=== PATIENT | female | born 1960 | race Caucasian/White ===

== ENCOUNTER 2017-01-21 10:09 | Observation (INO) | payer OTHER ==
[2017-01-21] MEDS ORDERED: PHENAZOPYRIDINE HCL 200 MG TAB PO ONE (10:15)
[2017-01-21] MEDS ORDERED: SCOPOLAMINE HYDROBROMIDE 1.5 MG PATCH TD ONE (10:15)
[2017-01-21] MEDS ORDERED: ceFAZolin 2 GM/DEXTROSE 100 ML IV ONE (10:30)
[2017-01-21] MEDS ORDERED: LR 1,000 ML IV ONE ×2 (10:30→11:01)
[2017-01-21] MEDS ORDERED: BUPIVACAINE/EPI 0.5% 30 ML SDV ONE (10:54)
[2017-01-21] MEDS ORDERED: LIDOCAINE 1% 5 ML SDV ID PRN (11:01)
[2017-01-21] MEDS ORDERED: MIDAZOLAM 2 MG/2 ML VIAL ONE (11:29)
[2017-01-21] MEDS ORDERED: PROPOFOL/EMULSION 500 MG/50 ML BOTTLE IV ONE (11:40)
[2017-01-21] MEDS ORDERED: PROPOFOL 200 MG/20 ML VIAL ONE (11:40)
[2017-01-21] MEDS ORDERED: KETOROLAC 30 MG/1 ML SDV ONE (11:57)
[2017-01-21] MEDS ORDERED: GLYCOPYRROLATE 0.2 MG/1 ML VIAL ONE (11:57)
[2017-01-21] MEDS ORDERED: DEXAMETHASONE 4 MG/ML VIAL ONE (11:57)
[2017-01-21] MEDS ORDERED: ROCURONIUM 50 MG/5 ML VIAL ONE (11:57)
[2017-01-21] MEDS ORDERED: LIDOCAINE 2% 5 ML SDV ONE (11:57)
[2017-01-21] MEDS ORDERED: ONDANSETRON 4 MG/2 ML VIAL ONE (11:59)
[2017-01-21] MEDS ORDERED: SUGAMMADEX SODIUM 200 MG/2 ML VIAL IVP ONE (13:06)
[2017-01-21] MEDS ORDERED: ZOLPIDEM TARTRATE 5 MG TAB PO PRN (13:40)
[2017-01-21] MEDS ORDERED: ONDANSETRON 4 MG/2 ML VIAL IVP PRN (13:40)
[2017-01-21] MEDS ORDERED: HYDROCODONE/APAP 5/325 TAB PO PRN (13:40)
[2017-01-21] MEDS ORDERED: traMADol 50 MG TAB PO PRN (13:40)
[2017-01-21] MEDS ORDERED: OXYCODONE/APAP 5/325 TAB PO PRN (13:40)
[2017-01-21] MEDS ORDERED: fentaNYL 100 MCG/2 ML INJ ONE (13:44)
[2017-01-21] MEDS ORDERED: HYDROmorphONE/DILAUDID 1 MG/ML SYR ONE (13:44)
--- NOTE | 2017-01-21 13:54 | POSTOPPROG ---
Post Op Note Date of Operation: 01/21/17 Surgeon: Manuel Quintana Spot Man: Isha Sagastume Anesthesiologist: Sofy Brambila Anesthesia: GET(General Endotracheal) Pre-op Diagnosis: Uterine fibroids, PMB, urinary urgency Post-op Diagnosis: Same Procedure: Robotic hyst, BSO, US Lig colpopexy, cysto, excision of endometriosis Findings: Ureters fjunction at end of case. Inf/Abcess present in the surg proc area at time of surgery?: No EBL: Minimal Complications: None
[2017-01-21] MEDS ORDERED: LR 1,000 ML IV SCH (14:00)
--- NOTE | 2017-01-21 14:51 | GOP ---
[f rep st] OPERATIVE REPORT DATE OF OPERATION: 01/21/2017 SURGEON: Manuel Quintana MD MEASUREMENT ANALYST: Ihsa Sagastume CFA. ANESTHESIA: General. PREOPERATIVE DIAGNOSIS: 1. Postmenopausal bleeding. 2. Uterine fibroids. 3. Pelvic pain. 4. Urinary frequency. POSTOPERATIVE DIAGNOSIS: 1. Postmenopausal bleeding. 2. Uterine fibroids. 3. Pelvic pain. 4. Urinary frequency. PROCEDURE PERFORMED: 1. Robotic-assisted total laparoscopic hysterectomy. 2. Bilateral salpingo-oophorectomy. 3. Bilateral uterosacral ligament colpopexy. 4. Robotic excision of endometriosis. 5. Cystoscopy. FINDINGS: SPECIMENS: Uterus, cervix, bilateral tubes and ovaries, and peritoneum with endometriosis. ESTIMATED BLOOD LOSS: Scant. DESCRIPTION OF PROCEDURE: The patient was taken to the operating room where she was identified. Ge neral anesthesia was administered and found to be adequate. She was placed in the lithotomy positio n and prepared and draped in the normal sterile fashion. A VCare uterine manipulator was placed into the endometrial cavity and sutured to the cervix. A Fol ey catheter was then placed. A 1 cm infraumbilical incision was made with a scalpel. The Veress needle with the CO2 gas flowing was advanced into the peritoneal cavity. The abdomen was then insufflated with carbon dioxide gas. A 12 mm trocar followed by the laparoscope were then inserted. The upper abdomen was unremarkable. The liver, gallbladder and stomach looked grossly normal. Two lateral ports were placed on the right and 1 on the left under direct visualization. She then w as placed in Trendelenburg position and the da Jl robot docked on the left side. The instruments were then brought into the abdominal cavity under direct visualization. The left fallopian tube wa s along the mesosalpinx. The utero-ovarian ligament followed by the round ligament were t hen cauterized and transected. The anterior leaf of the broad ligament was then incised to the bifu rcation of the left common iliac vessels. A window was created in the posterior leaf to skeletonize the infundibulopelvic vessels. They were then cauterized and transected. The anterior leaf of the broad ligament was then incised over the cervix and across the vagina. The left uterine vasculatur e was then cauterized and transected. The left ureter had been dissected out from the pelvic brim t o where it crossed underneath the left uterine artery due to the endometriosis so that the ureter co uld be lateralized away from the overlying endometriosis, peritoneum and uterine fibroids, which wer e extending laterally. Once this was accomplished, the left uterine vasculature was then cauterized and transected. The exact same procedure was performed on the patient's right side. However, she did not require a ureterolysis. The posterior cul-de-sac peritoneum was then excised to remove all endometriosis. A circumferential colpotomy incision was then made with the hot sera and all specimens were remove d through the vagina. The vaginal cuff was closed with a running suture of 0 V-Loc 180. A bilateral uterosacral ligament colpopexy was performed by attaching the lateral aspects of the vaginal cuff to the ipsilateral uter osacral ligaments near their insertion into the coccygeal-sacrospinous ligament complexes. Anesthes ia was reversed and the patient taken the PACU awake, in stable condition. COMPLICATIONS: None. DISPOSITION: Patient stable to PACU. /[id number]/MODL
[2017-01-21] MEDS: KETOROLAC 30 MG/1 ML SDV IVP SCH (18:44)
[2017-01-21] MEDS ORDERED: MELATONIN 3 MG TAB PO SCH (21:00)
[2017-01-22] MEDS: KETOROLAC 30 MG/1 ML SDV IVP SCH ×3 (00:53→12:30)
[2017-01-22 06:57] LABS: HEMATOCRIT 33.4 % (38.0-47.0); HEMOGLOBIN 11.2 g/dL (12.6-16.3)
[2017-01-22] MEDS ORDERED: CETIRIZINE 10 MG TAB PO PRN (09:00)
[2017-01-22 13:10] VITALS: BP 84/51; PULSE 51; RESP 12; TEMP 96.9; O2SAT 96
[2017-01-25] MEDS ORDERED: ESTRADIOL VIVELLE 0.075 MG PATCH TD SCH (08:00)
--- NOTE | 2017-01-25 14:44 | GDS ---
[f rep st] DISCHARGE SUMMARY DISCHARGE DIAGNOSES: 1. Postmenopausal bleeding. 2. Uterine fibroids. 3. Pelvic pain. 4. Endometriosis. PROCEDURES: 1. Robotic-assisted total laparoscopic hysterectomy, bilateral salpingo-oophorectomy. 2. Bilateral uterosacral ligament colpopexy. 3. Cystoscopy. 4. Excision of endometriosis. 5. Bilateral ureterolysis. HISTORY: The patient is a 56-year-old female with persistent postmenopausal bleeding, uterine fibro ids, urinary urgency, and pelvic pain, which had failed medical management. She was taken to the op erating room on 01/21/2017, where she underwent the above-mentioned procedures without complications . Her postoperative course was uneventful. The morning after surgery she was ambulating, voiding, and tolerating a general diet. She was discharged home on postoperative day #1 in good condition. Med ications included Mobile and ibuprofen for pain as well as simethicone for gas. She is to follow up in the office 2 weeks after discharge. Copy requested to: MD Christin Nelson, [place] /[id number]/MODL
== END 2017-01-22 13:15 | disposition home or self-care (01) ==
LOC: OBSVTOIN 10:09 → INTOOBSV 10:09 → F3E 10:09 → FOB 15:04
PROVIDERS: ADMIT Obstetrics & Gynecology; ATTEND Obstetrics & Gynecology
PROC: 0UBF4ZZ Excision of Cul-de-sac, Percutaneous Endoscopic Approach (ICD-10-PCS; principal; 2017-01-21 11:45)
PROC: 0UT94ZZ Resection of Uterus, Percutaneous Endoscopic Approach (ICD-10-PCS; principal; 2017-01-21 11:45)
PROC: 0USG4ZZ Reposition Vagina, Percutaneous Endoscopic Approach (ICD-10-PCS; principal; 2017-01-21 11:45)
PROC: 0UT24ZZ Resection of Bilateral Ovaries, Percutaneous Endoscopic Approach (ICD-10-PCS; principal; 2017-01-21 11:45)
PROC: 0UT74ZZ Resection of Bilateral Fallopian Tubes, Percutaneous Endoscopic Approach (ICD-10-PCS; principal; 2017-01-21 11:45)
DX: N95.0 Postmenopausal bleeding (principal); D25.9 Leiomyoma of uterus, unspecified; R10.2 Pelvic and perineal pain; N80.9 Endometriosis, unspecified; R35.0 Frequency of micturition
CPT/HCPCS: 57425; 58571; 58662; G0378; J0690; J1100; J1170; J1885; J2250; J2405; J2704; J3010

== ENCOUNTER → 2017-06-30 | Outpatient (CLI) | payer OTHER | LOC: CIMAGING 09:13 | PROVIDERS: ATTEND Family Medicine | DX: Z12.31 Encounter for screening mammogram for malignant neoplasm of breast (principal) | CPT/HCPCS: G0202 ==

== ENCOUNTER → 2018-07-01 | Outpatient (CLI) | payer OTHER | LOC: CIMAGING 14:51 | PROVIDERS: ATTEND Family Medicine | DX: Z12.31 Encounter for screening mammogram for malignant neoplasm of breast (principal) ==